=== PATIENT | female | born 1990 | race Caucasian/White ===

== ENCOUNTER 2016-11-27 17:24 | Emergency (ER) | payer OTHER ==
[~2016-11-27] VITALS: Ht 160 cm; Wt 99.3 kg
[~2016-11-27 17:24] MED LIST: IBUP200T48 PO
[2016-11-27 17:31] VITALS: BP 136/99
[2016-11-27] MEDS ORDERED: SPIR25TA3 PO (18:37)
== END 2016-11-27 19:25 | disposition home or self-care (01) ==
LOC: ED 19:15
DX: L29.8 Other pruritus (principal)
CPT/HCPCS: 99283

== ENCOUNTER → 2017-09-24 | Outpatient (CLI) | payer OTHER ==
[~2017-09-24] MED LIST changes: -IBUP200T48 PO; +IBUP200T49 PO; +SPIR25TA3 PO
== END | disposition home or self-care (01) ==
LOC: CFH 07:13
PROVIDERS: ATTEND Obstetrics & Gynecology Female Pelvic Medicine and Reconstructive Surgery
DX: Z30.431 Encounter for routine checking of intrauterine contraceptive device (principal); N94.6 Dysmenorrhea, unspecified
CPT/HCPCS: 76830

== ENCOUNTER → 2018-01-02 | Outpatient (CLI) | payer OTHER ==
[~2018-01-02] MED LIST changes: -SPIR25TA3 PO; +SPIR25TA5 PO
[2018-01-02 11:58] LABS: ALBUMIN 3.3 g/dL (3.4-5.0); ANION GAP 8 mmol/L (5-15); CALCIUM 8.7 mg/dL (8.5-10.1); CHLORIDE 107 mmol/L (98-107)
[2018-01-02 12:14] LABS: HCT (SEDRATE) 43.1 % (34.6-47.8)
[2018-01-02 12:23] LABS: ALANINE AMINOTRANSFERASE 41 U/L (12-78); ALKALINE PHOSPHATASE 61 U/L (45-117); BILIRUBIN,TOTAL 0.4 mg/dL (0.2-1.0); CREATININE 0.89 mg/dL (0.55-1.02); FREE T4 (FREE THYROXINE) 1.14 ng/dL (0.76-1.46); TOTAL PROTEIN 7.2 g/dL (6.4-8.2)
[2018-01-02 12:30] LABS: FOLATE LEVEL > 20.0 ng/mL (3.1-17.5)
[2018-01-03 15:49] LABS: ANA SCREEN NEGATIVE (Negative)
== END | disposition home or self-care (01) ==
LOC: LAB 11:17
PROVIDERS: ATTEND Registered Nurse
DX: G43.711 Chronic migraine without aura, intractable, with status migrainosus (principal); N94.6 Dysmenorrhea, unspecified
CPT/HCPCS: 36415; 80053; 82306; 82607; 82746; 83735; 84439; 84443; 85613; 85651; 85670; 85705; 85732; 86038; 86235

== ENCOUNTER → 2018-04-25 | Outpatient (CLI) | payer OTHER | END | disposition home or self-care (01) | LOC: CFH 10:20 | PROVIDERS: ATTEND Otolaryngology | DX: J34.1 Cyst and mucocele of nose and nasal sinus (principal); J32.4 Chronic pansinusitis | CPT/HCPCS: 70486 ==

== ENCOUNTER 2018-11-08 07:50 | Outpatient (CLI) | payer OTHER ==
[2018-11-08] MEDS ORDERED: ALBU8.5H8 INH (08:17)
[2018-11-08] MEDS ORDERED: ZONI100C2 PO (08:17)
[2018-11-08] MEDS ORDERED: RIZA10TA5 PO (08:17)
[2018-11-08] MEDS ORDERED: IBUP-1223 PO (08:17)
[2018-11-08 08:49] LABS: ALBUMIN 3.3 g/dL (3.4-5.0); ANION GAP 4 mmol/L (5-15); CALCIUM 8.8 mg/dL (8.5-10.1); CHLORIDE 113 mmol/L (98-107)
[2018-11-08 08:53] LABS: ALANINE AMINOTRANSFERASE 45 U/L (12-78); ALKALINE PHOSPHATASE 63 U/L (45-117); BILIRUBIN,TOTAL 0.4 mg/dL (0.2-1.0); CREATININE 0.97 mg/dL (0.55-1.02); TOTAL PROTEIN 6.9 g/dL (6.4-8.2)
== END 2018-11-08 23:59 | disposition home or self-care (01) ==
LOC: STAR 07:50
PROVIDERS: ATTEND Internal Medicine Gastroenterology
DX: K21.9 Gastro-esophageal reflux disease without esophagitis (principal); K59.00 Constipation, unspecified; R92.1 Mammographic calcification found on diagnostic imaging of breast
CPT/HCPCS: 36415; 80053

== ENCOUNTER 2018-12-19 03:34 | Emergency (ER) | payer OTHER ==
[~2018-12-19] VITALS: Ht 160 cm; Wt 106.0 kg
[2018-12-19 05:57] VITALS: BP 124/68
== END 2018-12-19 06:07 | disposition home or self-care (01) ==
LOC: ED 05:52
DX: K29.00 Acute gastritis without bleeding (principal); J45.909 Unspecified asthma, uncomplicated
CPT/HCPCS: 36415; 76700; 80053; 81003; 81025; 83690; 84484; 85025; 93005; 96374; 96375; 99284; J2270; J2405

== ENCOUNTER 2019-01-04 13:37 | Inpatient (IN) | payer OTHER ==
[~2019-01-04] VITALS: Ht 160 cm; Wt 101.4 kg
[2019-01-09 15:09] VITALS: BP 115/79
== END 2019-01-09 16:08 | disposition home or self-care (01) | DRG 418 ==
LOC: ED 16:04 → SUATTDRO 16:40 → EDIP 16:43 → 3NE 18:30 → 4NOR 01-08 19:21 → DCLOUNGE 01-09 15:46
PROVIDERS: ADMIT Internal Medicine; ATTEND Internal Medicine
PROC: 0FC98ZZ Extirpation of Matter from Common Bile Duct, Via Natural or Artificial Opening Endoscopic (ICD-10-PCS; 2019-01-07)
PROC: BF131ZZ Fluoroscopy of Gallbladder and Bile Ducts using Low Osmolar Contrast (ICD-10-PCS; 2019-01-07)
PROC: 0FT44ZZ Resection of Gallbladder, Percutaneous Endoscopic Approach (ICD-10-PCS; principal; 2019-01-08)
DX: K80.63 Calculus of gallbladder and bile duct with acute cholecystitis with obstruction (principal); Z68.41 Body mass index [BMI] 40.0-44.9, adult; K59.00 Constipation, unspecified; J45.909 Unspecified asthma, uncomplicated; F41.1 Generalized anxiety disorder; K76.0 Fatty (change of) liver, not elsewhere classified; G43.909 Migraine, unspecified, not intractable, without status migrainosus; E83.39 Other disorders of phosphorus metabolism; E66.01 Morbid (severe) obesity due to excess calories; Z80.8 Family history of malignant neoplasm of other organs or systems; Z88.0 Allergy status to penicillin; Z88.5 Allergy status to narcotic agent; Z79.899 Other long term (current) drug therapy
CPT/HCPCS: 36415; 74021; 74328; 96374; 96375; 99285; J3490; S0020; 74181; 76700; 80053; 81001; 81025; 82247; 82248; 83605; 83690; 83735; 84100; 85025; 85610; 87086; 88304; G0378; J0171; J0690; J0696; J1100; J1170; J2250; J2405; J2704; J3010; Q9967; C9113; J0330; J2270; J7030; J7040

== ENCOUNTER → 2020-06-09 | Outpatient (CLI) | payer OTHER, BC ==
[~2020-06-09] MED LIST changes: +ALBU8.5H8 INH; +HYDR-3240 PO; +IBUP-1223 PO; +KETO10TA PO; +OMEP-110 PO; +ONDA4TAB7 PO; +RIZA10TA5 PO; +ZONI100C29 PO
== END | disposition home or self-care (01) ==
LOC: CFH 07:45
PROVIDERS: ATTEND Orthopaedic Surgery
DX: S63.592A Other specified sprain of left wrist, initial encounter (principal); M67.432 Ganglion, left wrist; G56.02 Carpal tunnel syndrome, left upper limb; X58.XXXA Exposure to other specified factors, initial encounter; Y93.89 Activity, other specified; Y92.89 Other specified places as the place of occurrence of the external cause; Y99.8 Other external cause status

== ENCOUNTER → 2020-11-01 | Outpatient (CLI) | payer OTHER, BC ==
[~2020-11-01] MED LIST changes: +HYDR-2214 PO; -HYDR-3240 PO
[2020-11-01 08:03] LABS: ALANINE AMINOTRANSFERASE 42 U/L (12-78); ALBUMIN 3.2 g/dL (3.4-5.0)
[2020-11-01 08:17] LABS: BILIRUBIN, DIRECT < 0.1 mg/dL (0.1-0.2)
[2020-11-01 08:29] LABS: ALKALINE PHOSPHATASE 55 U/L (45-117); BILIRUBIN,INDIRECT 0.1 mg/dL (0.0-2.0); BILIRUBIN,TOTAL 0.2 mg/dL (0.2-1.0); FREE T4 (FREE THYROXINE) 1.05 ng/dL (0.76-1.46); TOTAL PROTEIN 6.8 g/dL (6.4-8.2)
[2020-11-01 08:30] LABS: FOLATE LEVEL > 20.0 ng/mL (3.1-17.5)
== END | disposition home or self-care (01) ==
LOC: LAB 07:36
PROVIDERS: ATTEND Registered Nurse
DX: E11.65 Type 2 diabetes mellitus with hyperglycemia (principal); R53.83 Other fatigue; G43.709 Chronic migraine without aura, not intractable, without status migrainosus; L65.9 Nonscarring hair loss, unspecified
CPT/HCPCS: 36415; 80076; 82306; 82607; 82746; 83036; 84439; 84443